=== PATIENT | male | born 1970 | race Caucasian/White ===

== ENCOUNTER 2023-03-08 20:55 | Outpatient (OUT) | payer BC, SELFPAY | END 2023-03-08 20:56 | PROVIDERS: PCP Psychiatry & Neurology Neurology; Visit Provider Psychiatry & Neurology Neurology | DX: G47.33 Obstructive sleep apnea (adult) (pediatric) (principal) | CPT/HCPCS: 95810 ==

== ENCOUNTER 2023-12-06 15:21 | Outpatient (OUT) | payer BC, SELFPAY ==
--- NOTE | 2023-12-06 15:25 | XR_ITS ---
The [address] [address] Patient Name: ELIAZAR FENG MRN: [id number] date: 1970 Sex: M Assigned Patient Location: RAD Current Patient Location: RAD Accession/Order Number: [id number] Exam Date: 12/06/2023 15:32 Report Date: 12/06/2023 20:10 At the request of: ALEIDA JEREZ Procedure: XR chest 2V EXAM: XR chest 2V HISTORY: Influenza A J10.1 COMPARISON: 01/09/2019 TECHNIQUE: Upright PA and lateral chest x-ray FINDINGS: The heart is not enlarged and the vasculature is not distended. No acute infiltrate, effusion or pneumothorax is identified. Again seen is evidence of previous granulomatous disease. The osseous structures are grossly intact. XR/XR chest 2V IMPRESSION: No acute infiltrate or evidence of cardiac decompensation. Mild chronic changes are noted. The overall appearance is essentially unchanged. Electronically authenticated by: ARASELI CAMACHO Date: 12/06/2023 20:10
== END 2023-12-06 15:22 | disposition home or self-care (01) ==
LOC: RAD 15:22
PROVIDERS: PCP Internal Medicine; Visit Provider Physician Assistant
DX: J10.1 Influenza due to other identified influenza virus with other respiratory manifestations (principal); J44.9 Chronic obstructive pulmonary disease, unspecified
CPT/HCPCS: 71046

== ENCOUNTER 2023-12-13 17:23 | Inpatient (IN) | payer BC, SELFPAY ==
[2023-12-13] VITALS (38 sets, daily range): BP systolic 117–167; BP diastolic 80–110; PULSE 89–138; RESP 13–31; TEMP 37.1–39; O2SAT 93–99; BMI 32.3; BMI 32.4
--- NOTE | 2023-12-13 18:27 | ECG_ITS ---
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 Repeat ECG is requested 9150 abnormal ECG Electronically Signed On 12-14-2023 6:42:00 EDT by LUKE AGUILAR
[2023-12-13 18:45] LABS: Hematocrit 47.8 % (42.0-54.0); Mean Corpuscular HGB Conc 33.5 g/dL (29.9-35.2); Mean Corpuscular Hemoglobin 30.3 pg (25.9-34.0); Mean Corpuscular Volume 90.5 fL (80.0-94.0); Mean Platelet Volume 9.1 fL (9.5-13.5); Platelet Count 647 10^3/uL (150-450); Red Blood Count 5.28 10^6/uL (4.70-6.10); Red Cell Distribution Width 14.4 % (11.0-15.0); White Blood Count 29.4 10^3/uL (4.0-11.0)
[2023-12-13 18:57] LABS: Alanine Aminotransferase 34 U/L (16-63); Albumin Level 3.6 g/dL (3.4-5.0); Alkaline Phosphatase 119 U/L (46-116); Anion Gap 12.4; Aspartate Amino Transferase 20 U/L (15-37); BUN Creatinine Ratio 17.6; Calcium 8.7 mg/dL (8.5-10.1); Carbon Dioxide 25.6 mmol/L (21.0-32.0); Chloride 100 mmol/L (98-107); Estimated GFR (African America >60 (>=60); Estimated GFR (Non-African Ame >60 (>=60); Globulin 3.5 g/dL; Glucose 102 mg/dL (74-106); Sodium 134 mmol/L (136-145); Total Protein 7.1 g/dL (6.4-8.2); Troponin I High Sensitivity 69.7 pg/mL (4.0-76.1)
[2023-12-13 19:12] LABS: Band Neutrophils Absolute 1.2 10^3/uL (0.0-0.3)
[2023-12-13 19:13] LABS: Atypical Lymphocytes Abs Man 0.29; Lymphocytes Absolute Manual 0.29 10^3/uL (1.20-3.80); Monocytes Absolute Manual 3.23 10^3/uL (0.30-0.80)
--- NOTE | 2023-12-13 19:15 | XR_ITS ---
The [address] [address] Patient Name: ELIAZAR FENG MRN: [id number] date: 1970 Sex: M Assigned Patient Location: ER Current Patient Location: ER Accession/Order Number: [id number] Exam Date: 12/13/2023 19:49 Report Date: 12/13/2023 20:30 At the request of: COURTNEY MARKER Procedure: XR chest 2V TWO-VIEW CHEST RADIOGRAPH, 12/13/2023 7:49 PM EDT: COMPARISON: Chest, 12/06/2023. CLINICAL HISTORY: fever, cough Findings and impression: 1. On the lateral projection, there is questionable faint opacity suspected in the posterior aspect of the right lower lobe raising possibility for some mild atelectasis or early pneumonia. 2. Normal heart size. 3. No acute osseous abnormality. Electronically authenticated by: Mike PETERS Date: 12/13/2023 20:30
--- NOTE | 2023-12-13 19:17 | ED_ITS ---
HPI - General Adult General Chief complaint: Shortness of Breath/Dyspnea Stated complaint: Medication Refill Time Seen by Provider: 12/13/23 18:53 Source: patient and family Mode of arrival: walk-in Limitations: no limitations History of Present Illness HPI narrative: 53-year-old male, smoker with a history of COPD presents for evaluation stating that he has been taking he has been taking [place] for the past several months for bone spurs in his feet and shoulders. States that he was eating them like candy up to 10-15 a day. He states that he ran out of them approximately 3-1/2 days ago. Since that time he has been having body aches, chills, sweats, diarrhea. He has looked up the symptoms on to go and feel that he is in opiate withdrawal. He is not here for refills on his opiates and wants to stop taking them understanding the risk of addiction and dependence and overdose potential. The patient has also had the flu for the past 2 weeks. He states he tested positive for influenza A. He has had a cough that is productive of sometimes pain and sometimes brown phlegm. He denies any chest pain. He has also had diarrhea recently with abdominal cramping. His legs are cramping. He requests something to help him with withdrawal because he cannot sleep and has had only several hours of sleep for the past several days. Related Data Home Medications ?Medication ?Instructions ?Recorded ?Confirmed albuterol sulfate 90 mcg/actuation 1 puff inhalation Q4H PRN 12/13/23 12/13/23 aerosol inhaler shortness of breath or wheezing budesonide 160 mcg-glycopyr 9 2 inh inhalation BID 12/13/23 12/13/23 mcg-formot 4.8 mcg/actuation HFA inhaler (Breztri Aerosphere) nicotine 21 mg/24 hr daily 1 patch topical Q24H 12/13/23 12/13/23 transdermal patch prednisone 10 mg tablet 10 mg PO TID 12/13/23 12/13/23 tizanidine 4 mg tablet 4 mg PO QPM PRN muscle spasticity 12/13/23 12/13/23 Allergies Allergy/AdvReac Type Severity Reaction Status Date / Time No Known Drug Allergies Allergy Verified 12/13/23 17:53 Review of Systems ROS Status of ROS 10 or more systems reviewed and unremark able except as noted in history and below Exam Narrative Exam Narrative: Nurses note and vital signs reviewed; He is febrile oral temperature one 02.2, tachycardic with a pulse of 129 and blood pressures elevated at 167/110, he is not hypoxic with pulse ox of 95 percent on room air General: Nontoxic but ill-appearing flushed adult male, he has a harsh cough, no marybel respiratory distress Skin: Warm to the touch, flushed and diaphoretic Head: Normocephalic, atraumatic Eye: Normal conjunctiva, no drainage, EOMI. PERRL Ears, Nose, Mouth, and Throat: oral mucosa is moist. Nares patent. Mouth without vesicles. Cardiovascular: Regular Rate and Rhythm, tachycardic in the 120s Respiratory: Moist cough, lungs are diffusely diminished with rhonchi, no rales or wheezing appreciated Back: non-tender, no CVA tenderness bilaterally to percussion. GI: Normal bowel sounds, no tenderness to palpation, no masses appreciated. No rebound, guarding, or rigidity noted. Musculoskeletal: The patient has no evidence of calf tenderness, no pitting edema, symmetrical pulses noted bilaterally Neurological: A&O x4, normal speech Psychiatric: Cooperative, Anxious and tearful at times Constitutional Vital Signs, click to edit/add: Last Vital Signs Temp 99.7 F 12/13/23 21:21 Pulse 94 H 12/13/23 21:50 Resp 26 H 12/13/23 21:50 BP 118/91 12/13/23 20:23 Pulse Ox 94 L 12/13/23 21:50 O2 Del Method Room Air 12/13/23 19:50 Course Vital Signs Vital signs: Vital Signs Temperature 99 F 12/13/23 17:53 Pulse Rate 138 H 12/13/23 17:53 Respiratory Rate 20 12/13/23 17:53 Blood Pressure 167/110 H 12/13/23 17:53 Pulse Oximetry 95 12/13/23 17:53 Oxygen Delivery Method Room Air 12/13/23 17:53 Temperature 99.7 F 12/13/23 21:21 Pulse Rate 94 H 12/13/23 21:50 Respiratory Rate 26 H 12/13/23 21:50 Blood Pressure 118/91 12/13/23 20:23 Pulse Oximetry 94 L 12/13/23 21:50 Oxygen Delivery Method Room Air 12/13/23 19:50 Medical Decision Making [facility] Narrative Medical decision making narrative: 53-year-old male with a history of chronic obstructive pulmonary disease and tobacco use presents for evaluation of diarrhea, nausea, fevers chills, body aches. He was recently diagnosed with influenza A. He has also recently been taking large doses of [place] for chronic pain. The patient's last [place] was 3-1/2 days ago and he has been having diarrhea, chills and sweats. He also has a cough with productive pink and brown phlegm. He was recently on antibiotics steroids and Tessalon Perles. He states that he wants any narcotic medications and in fact wants to get off of the narcotics because he is aware of the abuse potential and overdose potential related to the narcotic use. Upon arrival he was noted to be ill-appearing and markedly tachycardic with a pulse in the 120s to 130s. As a sinus tachycardia at 123 bpm. He has coarse breath sounds and a productive cough. Respiratory panel was ordered which is negative. Routine labs including tylenol level, CBC with differential, CMP and troponin were ordered. H is respiratory panel was negative. Markedly elevated white count at 29.4. He has recently been on steroids twice. Blood cultures and lactic acid are ordered. Blood cultures are pending at this time. Lactic acid is normal. Electrolytes are normal. Chest x-ray shows questionable RLL infiltrate. He was medicated with IV Levaquin, toradol, po clonidine, zofran for the nausea, and IVF for the dehydr ation and body aches. He was given po tylenol for the fever once the tylenol level came back less than 2. CT of the chest is negative for pulmonary embolism but does show right lower lobe infiltrate consistent with pneumonia. He is was discussed with the hospitalist patient accepted for admission Medical Records Medical records narrative: The [address] [address] XRay Report Signed Patient: ELIAZAR FENG MR#: [id number] : 1970 Acct:[id number] Age/Sex: 53 / M ADM Date: 12/13/23 Loc: ER Attending Dr: Ordering Physician: Shena Chairez Date of Service: 12/13/23 Procedure(s): XR chest 2V Accession Number(s): [id number] cc: PHOEBE MARKS ; Shena Chairez~ The [address] [id number] Patient Name: ELIAZAR FENG MRN: [id number] date: 1970 Sex: M Assigned Patient Location: ER Current Patient Location: ER Accession/Order Number: [id number] Exam Date: 12/13/2023 19:49 Report Date: 12/13/2023 20:30 At the request of: SHENA MARKER Procedure: XR chest 2V TWO-VIEW CHEST RADIOGRAPH, 12/13/2023 7:49 PM EDT: COMPARISON: Chest, 12/06/2023. CLINICAL HISTORY: fever, cough Findings and impression: 1. On the lateral projection, there is questionable faint opacity suspected in the posterior aspect of the right lower lobe raising possibility for some mild atelectasis or early pneumonia. 2. Normal heart size. 3. [place] [address] CT Scan Report Signed Patient: ELIAZAR FENG MR#: [id number] : 1970 Acct:[id number] Age/Sex: 53 / M ADM Date: 12/13/23 Loc: ER Attending Dr: Ordering Physician: Shena Chairez Date of Service: 12/13/23 Procedure(s): CT angio chest Accession Number(s): [id number] cc: PHOEBE MARKS ~ The [address] [address] Patient Name: ELIAZAR FENG MRN: [id number] date: 1970 Sex: M Assigned Patient Location: ER Current Patient Location: ER Accession/Order Number: [id number] Exam Date: 12/13/2023 21:00 Report Date: 12/13/2023 22:01 At the request of: SHENA MARKER Procedure: CT angio chest EXAM: CT angio chest , 12/13/2023 HISTORY: R/O PE fever and cough COMPARISON: Chest x-ray from 12/13/2023 TECHNIQUE: CT scan of the chest using intravenous 98 mL of Omnipaque [address] angiogram pulmonary artery protocol. Coronal and sagittal reconstructions were performed including 3-D. Dose reduction techniques were achieved by using automated exposure control and/or adjustment of mA and/or kV according to patient size and/or use of iterative reconstruction technique. FINDINGS: The main pulmonary artery, right and left pulmonary arteries, lobar and segmental pulmonary arteries are patent and show no obvious filling defect to suggest pulmonary thromboembolism. Study is limited for evaluation of the subsegmental pulmonary arteries due to suboptimal opacification. The lung windows demonstrate patchy infiltrates in the right lower lobe consistent with pneumonia. There is bilateral mild bronchial wall thickening, predominantly in the lower lobes. Motion artifacts are noted in the lung bases as well. Groundglass densities in the right middle lobe and left lung base. Calcified nodule in the right lung with calcified right hilar and mediastinal lymph nodes, consistent with old granulomas. The central tracheobronchial airways are patent. The mediastinal windows demonstrate patent thoracic aorta and great vessels. Ectatic ascending thoracic aorta measuring 3.8 cm. No pleural or pericardial effusion. Thyroid gland demonstrates no focal lesion or enlargement. Esophagus is nondilated. Borderline prominent right hilar lymph nodes, likely reactive. The bone windows demonstrate minimal degenerative changes thoracic spine. Limited scans through the upper abdomen show no acute findings. CT/CT angio chest IMPRESSION: 1. No evidence of pulmonary thromboembolism. 2. Right lower lobe infiltrates. Patchy groundglass densities in the right middle lobe and left lower lobe, likely infection or inflammation. 3. Ectatic ascending thoracic aorta measuring 3.8 cm. Lab Data Labs: Lab Results 12/13/23 12/13/23 Range/Units 18:18 19:41 WBC 29.4 H (4.0-11.0) 10^3/uL RBC 5.28 (4.70-6.10) 10^6/uL Hgb 16.0 (14.0-18.0) g/dL Hct 47.8 (42.0-54.0) % MCV 90.5 (80.0-94.0) fL MCH 30.3 (25.9-34.0) pg MCHC 33.5 (29.9-35.2) g/dL RDW 14.4 (11.0-15.0) % Plt Count 647 H (150-450) 10^3/uL MPV 9.1 L (9.5-13.5) fL Seg Neuts % (Manual) 83.0 Band Neutrophils % 4.0 (0-5) % Lymphocytes % (Manual) 1.0 L (20.5-60.0) % Atypical Lymphs % (Man) 1.0 % Monocytes % (Manual) 11.0 (1.7-12.0) % Eosinophils % (Manual) 0.0 L (0.9-7.0) % Basophils % (Manual) 0.0 L (0.2-2.0) % Neutrophils # (Manual) 24.40 H (1.4-6.5) 10^3/uL Band Neutrophils # 1.2 H (0.0-0.3) 10^3/uL Lymphocytes # (Manual) 0.29 L (1.20-3.80) 10^3/uL Abs Atypical Lymphs Man 0.29 Monocytes # (Manual) 3.23 H (0.30-0.80) 10^3/uL Eosinophils # (Manual) 0.00 (0.00-0.70) 10^3/uL Basophils # (Manual) 0.00 (0.00-0.10) 10^3/uL Sodium 134 L (136-145) mmol/L Potassium 4.0 (3.5-5.1) mmol/L Chloride 100 (98-107) mmol/L Carbon Dioxide 25.6 (21.0-32.0) mmol/L Anion Gap 12.4 BUN 16.0 (7.0-18.0) mg/dL Creatinine 0.91 (0.70-1.30) mg/dL Est GFR ( Amer) >60 (>=60) Est GFR (Non-Af Amer) >60 (>=60) BUN/Creatinine Ratio 17.6 Glucose 102 (74-106) mg/dL Lactate 1.5 (0.4-2.0) mmol/L Calcium 8.7 (8.5-10.1) mg/dL Total Bilirubin 2.0 H (0.2-1.0) mg/dL AST 20 (15-37) U/L ALT 34 (16-63) U/L Alkaline Phosphatase 119 H (46-116) U/L Troponin I High Sens 69.7 (4.0-76.1) pg/mL Total Protein 7.1 (6.4-8.2) g/dL Albumin 3.6 (3.4-5.0) g/dL Globulin 3.5 g/dL Albumin/Globulin Ratio 1.0 Acetaminophen <2.0 L (10.0-30.0) ug/mL Adenovirus (PCR) Not detected (NOT DETECTE) C. pneumoniae DNA (PCR) Not detected (NOT DETECTE) Coronavirus Type OC43 Not detected (NOT DETECTE) Coronavirus Type HKU1 Not detected (NOT DETECTE) Coronavirus Type 229E Not detected (NOT DETECTE) Coronavirus Type NL63 Not detected (NOT DETECTE) Human Metapneumovir PCR Not detected (NOT DETECTE) M. pneumoniae (PCR) Not detected (NOT DETECTE) Parainfluenza PCR Not detected (NOT DETECTE) Parainfluenza 2 (PCR) Not detected (NOT DETECTE) Parainfluenza 3 (PCR) Not detected (NOT DETECTE) Parainfluenza 4 (PCR) Not detected (NOT DETECTE) RSV (RT-PCR) Not detected (NOT DETECTE) Entero/Rhino (PCR) Not detected (NOT DETECTE) SARS-CoV-2 (PCR) Not detected (NOT DETECTE) Bordetella pertussis (PCR) Not detected (NOT DETECTE) B parapertussis DNA PCR Not detected (NOT DETECTE) Influenza Type A (PCR) Not detected (NOT DETECTE) Influenza Type B (PCR) Not detected (NOT DETECTE) Discharge Plan Discharge Chief Complaint: Shortness of Breath/Dyspnea Clinical Impression: Opiate withdrawal, RLL pneumonia Patient Disposition: Admitted As Inpatient Time of Disposition Decision: 22:15 Condition: Fair Prescriptions / Home Meds: No Action albuterol sulfate 90 mcg/actuation HFA aerosol inhaler 1 puff INHALATION Q4H PRN (Reason: shortness of breath or wheezing) Breztri Aerosphere 160-9-4.8 mcg/actuation HFA aerosol inhaler 2 inh INHALATION BID nicotine 21 mg/24 hr patch 24 hour 1 patch topical Q24H prednisone 10 mg tablet 10 mg PO TID tizanidine 4 mg tablet 4 mg PO QPM PRN (Reason: muscle spasticity) Print Language: Iraqi Referrals: PHOEBE MARKS [Primary Care Provider] - 1 week
[2023-12-13] MEDS: CLONIDINE HCL 0.1 MG TABLET 0.100000000000000006 MG PO (19:33)
[2023-12-13] MEDS: KETOROLAC TROMETHAMINE 30 MG/ML VIAL IVP (19:33)
[2023-12-13] MEDS: 0.9 % SODIUM CHLORIDE 1,000 ML 1000 ML IV ×2 (19:34→21:27)
[2023-12-13] MEDS: ONDANSETRON PF 4 MG/2 ML VIAL IV (19:43)
[2023-12-13 19:44] LABS: Lactate/Lactic Acid 1.5 mmol/L (0.4-2.0)
[2023-12-13 19:46] LABS: Adenovirus NOT DETECTED (NOT DETECTE); Bordetella parapertussis NOT DETECTED (NOT DETECTE); Coronavirus 229E NOT DETECTED (NOT DETECTE); Coronavirus HKU1 NOT DETECTED (NOT DETECTE); Coronavirus NL63 NOT DETECTED (NOT DETECTE); Coronavirus OC43 NOT DETECTED (NOT DETECTE); Human Metapneumovirus NOT DETECTED (NOT DETECTE); Human Rhinovirus/Enterovirus NOT DETECTED (NOT DETECTE); Influenza A NOT DETECTED (NOT DETECTE); Influenza B NOT DETECTED (NOT DETECTE); Mycoplasma pneumoniae NOT DETECTED (NOT DETECTE); Parainfluenza Virus 1 NOT DETECTED (NOT DETECTE); Parainfluenza Virus 2 NOT DETECTED (NOT DETECTE); Parainfluenza Virus 3 NOT DETECTED (NOT DETECTE); Parainfluenza Virus 4 NOT DETECTED (NOT DETECTE); Respiratory Syncytial Virus NOT DETECTED (NOT DETECTE); SARS-CoV-2 NOT DETECTED (NOT DETECTE)
[2023-12-13 19:52] LABS: Acetaminophen <2.0 ug/mL (10.0-30.0)
[2023-12-13] MEDS: ACETAMINOPHEN 325 MG TABLET 650 MG PO (20:20)
--- NOTE | 2023-12-13 20:46 | CT_ITS ---
[address] [address] Patient Name: ELIAZAR FENG MRN: [id number] date: 1970 Sex: M Assigned Patient Location: ER Current Patient Location: Accession/Order Number: [id number] Exam Date: 12/13/2023 21:00 Report Date: 12/13/2023 22:01 At the request of: COURTNEY MARKER Procedure: CT angio chest EXAM: CT angio chest , 12/13/2023 HISTORY: R/O PE fever and cough COMPARISON: Chest x-ray from 12/13/2023 TECHNIQUE: CT scan of the chest using intravenous 98 mL of Omnipaque [address] angiogram pulmonary artery protocol. Coronal and sagittal reconstructions were performed including 3-D. Dose reduction techniques were achieved by using automated exposure control and/or adjustment of mA and/or kV according to patient size and/or use of iterative reconstruction technique. FINDINGS: The main pulmonary artery, right and left pulmonary arteries, lobar and segmental pulmonary arteries are patent and show no obvious filling defect to suggest pulmonary thromboembolism. Study is limited for evaluation of the subsegmental pulmonary arteries due to suboptimal opacification. The lung windows demonstrate patchy infiltrates in the right lower lobe consistent with pneumonia. There is bilateral mild bronchial wall thickening, predominantly in the lower lobes. Motion artifacts are noted in the lung bases as well. Groundglass densities in the right middle lobe and left lung base. Calcified nodule in the right lung with calcified right hilar and mediastinal lymph nodes, consistent with old granulomas. The central tracheobronchial airways are patent. The mediastinal windows demonstrate patent thoracic aorta and great vessels. Ectatic ascending thoracic aorta measuring 3.8 cm. No pleural or pericardial effusion. Thyroid gland demonstrates no focal lesion or enlargement. Esophagus is nondilated. Borderline prominent right hilar lymph nodes, likely reactive. The bone windows demonstrate minimal degenerative changes thoracic spine. Limited scans through the upper abdomen show no acute findings. CT/CT angio chest IMPRESSION: 1. No evidence of pulmonary thromboembolism. 2. Right lower lobe infiltrates. Patchy groundglass densities in the right middle lobe and left lower lobe, likely infection or inflammation. 3. Ectatic ascending thoracic aorta measuring 3.8 cm. Electronically authenticated by: ISELA NIÑO Date: 12/13/2023 22:01
[2023-12-13] MEDS: LEVOFLOXACIN IN DEXTROSE 5 % 750 MG/150 ML IV.SOLN 100 MG IV (21:13)
--- NOTE | 2023-12-13 21:21 | PC.NURSE ---
radiation monitor continues
[2023-12-13] MEDS: IPRATROPIUM/ALBUTEROL SULFATE 3 ML AMPUL.NEB IH (21:37)
--- NOTE | 2023-12-13 22:58 | PC.NURSE ---
Patient has history of seizure 1x abut a year ago. None since
[2023-12-13 23:46] LABS: PROCALCITONIN 0.13 ng/mL (0.00-0.50)
[2023-12-13] MEDS: 0.9 % SODIUM CHLORIDE 1,000 ML 125 ML IV (23:56)
[2023-12-14] VITALS (19 sets, daily range): BP systolic 117–158; BP diastolic 77–97; PULSE 72–96; RESP 20; TEMP 36.8–37.2; O2SAT 92–96; BMI 32.4
--- NOTE | 2023-12-14 04:33 | PC.NURSE ---
Patient reports being sweaty. Temp 98.7. denies hallucinations or anxiety.
[2023-12-14 04:42] LABS: Glucometer 103 mg/dL (74-106)
--- NOTE | 2023-12-14 04:42 | PC.NURSE ---
Blood Sugar checked. 107 results
[2023-12-14 05:45] LABS: Basophils Percent Auto 0.2 % (0.2-2.0); Eosinophils Absolute Auto 0.1 10^3/uL (0.0-0.7); Eosinophils Percent Auto 0.4 % (0.9-7.0); Hematocrit 41.4 % (42.0-54.0); Hemoglobin 13.4 g/dL (14.0-18.0); Immature Granulocytes Abs Auto 0.15 10^3/uL (0.00-0.03); Immature Granulocytes Pct Auto 0.6 % (0.0-0.5); Lymphocytes Percent Auto 4.1 % (20.5-60.0); Mean Corpuscular HGB Conc 32.4 g/dL (29.9-35.2); Mean Corpuscular Volume 92.8 fL (80.0-94.0); Mean Platelet Volume 9.2 fL (9.5-13.5); Monocytes Absolute Auto 1.8 10^3/uL (0.3-0.8); Monocytes Percent Auto 7.1 % (1.7-12.0); Neutrophils Absolute Auto 22.4 10^3/uL (1.4-6.5); Neutrophils Percent Auto 87.6 % (43.0-75.0); Platelet Count 488 10^3/uL (150-450); Red Blood Count 4.46 10^6/uL (4.70-6.10); Red Cell Distribution Width 14.4 % (11.0-15.0); White Blood Count 25.5 10^3/uL (4.0-11.0)
[2023-12-14 06:10] LABS: Alanine Aminotransferase 32 U/L (16-63); Albumin Globulin Ratio 0.8; Albumin Level 2.5 g/dL (3.4-5.0); Alkaline Phosphatase 88 U/L (46-116); Anion Gap 10.4; Aspartate Amino Transferase 19 U/L (15-37); BUN Creatinine Ratio 22.7; Bilirubin Total 1.5 mg/dL (0.2-1.0); Calcium 7.8 mg/dL (8.5-10.1); Carbon Dioxide 25.7 mmol/L (21.0-32.0); Chloride 106 mmol/L (98-107); Estimated GFR (African America >60 (>=60); Estimated GFR (Non-African Ame >60 (>=60); Globulin 3.1 g/dL; Glucose 98 mg/dL (74-106); Potassium 4.1 mmol/L (3.5-5.1); Sodium 138 mmol/L (136-145); Total Protein 5.6 g/dL (6.4-8.2)
[2023-12-14] MEDS: 0.9 % SODIUM CHLORIDE 1,000 ML 125 ML IV (07:17)
--- NOTE | 2023-12-14 08:41 | PM.HP ---
HPI H&P: HPI History of Present Illness Chief complaint: Medication Refill Oplate withdrawal RLL Pneumonia Narrative: patient is a 53-year-old male with past medical history of multiple bone spurs of which she was seeing a orthopedic and on chronic opioid therapy, smoker, with history of chronic obstructive pulmonary disease. patient reports that two weeks ago he developed influenza A and was getting fevers and body aches and overall fatigue from that. He intermittently tried to go back to work and was just feeling terrible. He presented to the Emergency Room last night with fevers, chills, shortness of breath. He reports that he has underlying chronic obstructive pulmonary disease but does not see a lung doctor. He follows with Dr. Morales as his primary care physician and saw him a few days ago with his symptoms and got a chest x-ray which was negative for pneumonia. We presented to the Emergency Room last night x-ray and CT of the lungs was obtained which showed a right lower lobe right middle lobe and left lower lobe infiltrates consistent with multifocal pneumonia. He was admitted to the hospital service for further plan of care. He was started on Levaquin, IV fluids. His white blood cell count was found to be elevated at twenty-five, troponin was within normal limits. As a side note patient also says that he has been escalating his oxycodone prescription and taking around 10-12 a day for pain relief. He has ran out approximately seventy-two hours ago. He has never went without his medication before but says he does not want or wish to be on any opioid medications now. He said many years ago he was controlled on tramadol which then escalated to oxycodone that he was prescribed and now he reports that he does not want to be on anything controlled. He is been experiencing some abdominal cramping and some sweating also from withdrawal opioids. He denies any other recreational drugs or history of. He is wondering what else we could provide him with for withdrawal symptoms. Opioid HPI Opioid Management Most Recent Opioid Data: Last Pain Scale 6 12/14/23 09:28 Last Pain Assessment 12/14/23 11:00 Last MAR Pain Assessment 12/14/23 11:01 Last ORT Total Score 0 12/13/23 22:47 Last ORT Risk Category Low Risk 12/13/23 22:47 Last COWS Score 3 12/14/23 07:23 Review of Systems ROS Narrative ROS: a complete review of systems were reviewed with patient and are positive as below or listed in History of Chief Complaint. General: fever, chills, night sweats Head: no headache, trauma, visual changes, nausea or vomiting Skin: no reported rashes, itching or sores Eyes: no blurriness of vision Ears: no reported hearing loss, vertigo, earache, or tinnitus Throat: no sore throat, hoarseness, swelling of neck, or tongue pain Heart: no chest pain Lungs: shortness of breath and cough GI: no diarrhea or vomiting/nausea Urinary: no urinary urgency, frequency or pain Neuro: no numbness or tingling HEM: no bleeding issues or bruising ENDO: no thyroid problems Psych: no anxiety or depression PFSH PFSH Medical History (Updated 12/14/23 @ 12:43 by Ysabel Salazar DO) COPD (chronic obstructive pulmonary disease) with chronic bronchitis ?J44.89 - Other specified chronic obstructive pulmonary disease (ICD-10) AVM (arteriovenous malformation) brain ?Q28.2 - Arteriovenous malformation of cerebral vessels (ICD-10) AC (acromioclavicular) joint bone spurs ?M75.80 - Other shoulder lesions, unspecified shoulder (ICD-10) Hypertension ?I10 - Essential (primary) hypertension (ICD-10) Surgical History H/O shoulder surgery ?Z98.890 - Other specified postprocedural states (ICD-10) History of hernia surgery ?Z98.890 - Other specified postprocedural states (ICD-10) ?Z87.19 - Personal history of other diseases of the digestive system (ICD-10) Family History Other Family history not known due to adoption Social History Within the past year, how often did you have a drink containing alcohol: monthly or less Smoking status: Current every day smoker Non-prescribed substance use: denies use Previous occupational history: maintance Known occupational exposures/hazards: Yes Highest level of school completed/degree received: high school graduate Are you now , , , , never or living with a partner: In a typical week, how many times do you talk on the telephone with family, friends, or neighbors: never How often do you get together with friends or relatives: never How often do you attend denominational or restorationism services: never Do you belong to any clubs or organizations such as denominational groups unions, fraternal or athletic groups, or school groups: yes Total score: 2 Score interpretation: A score of greater than or equal to 2 indicates the lowest level of social isolation. Little interest or pleasure in doing things: not at all Feeling down, depressed, or hopeless: not at all Feel stressed/tense/nervous/anxious/difficulty sleeping: not at all Gender Identity: male Meds Home Medications and Allergies Home Medications ?Medication ?Instructions ?Recorded ?Confirmed ?Type albuterol sulfate 90 mcg/actuation 1 puff inhalation Q4H PRN 12/13/23 12/13/23 History aerosol inhaler shortness of breath or wheezing benzonatate 200 mg capsule 200 mg PO BID PRN cough 12/13/23 12/14/23 History budesonide 160 mcg-glycopyr 9 2 inh inhalation BID 12/13/23 12/14/23 History mcg-formot 4.8 mcg/actuation HFA inhaler (Breztri Aerosphere) codeine 10 mg-guaifenesin 100 mg/5 10 ml PO Q6H PRN cough 12/13/23 12/14/23 History mL oral liquid hydrocodone 5 mg-acetaminophen 325 1 tab PO Q6H PRN moderate to 12/13/23 12/14/23 History mg tablet severe pain nicotine 21 mg/24 hr daily 1 patch topical Q24H 12/13/23 12/13/23 History transdermal patch tizanidine 4 mg tablet 4 mg PO QPM PRN muscle spasticity 12/13/23 12/13/23 History Allergies Allergy/AdvReac Type Severity Reaction Status Date / Time No Known Drug Allergies Allergy Verified 12/13/23 17:53 Exam Narrative Exam Narrative: General: Patient is alert, and oriented to person, place and time with normal affect, proper hygiene Skin: no visible rashes, or ulcers Head: atraumatic, acephalic Eyes: PERRLA, no nystagmus present, conjunctiva clear, no scleral icterus Ears: normal gross auditory acuity Heart: Normal rate and rhythm, no murmurs/rubs/gallops Lungs: audible wheezes, crackles and diminished breath sounds bilaterally Abdomen: Normal audible bowel sounds, no distension, No palpable masses, no organomegaly, no rebound/guarding/ or rigidity Musculoskeletal: no swelling bilateral lower extremities Neuro: CN II-X grossly intact Constitutional Vital Signs, click to edit/add: Last Vital Signs Temp 98.9 F 12/14/23 07:21 Pulse 82 12/14/23 08:02 Resp 20 12/14/23 07:23 BP 154/91 H 12/14/23 07:21 Pulse Ox 94 L 12/14/23 07:21 O2 Del Method Room Air 12/14/23 07:21 Results Labs Labs: Short CBC 12/13/23 12/14/23 Range/Units 18:18 05:26 WBC 29.4 H 25.5 H (4.0-11.0) 10^3/uL Hgb 16.0 13.4 L (14.0-18.0) g/dL Hct 47.8 41.4 L (42.0-54.0) % Plt Count 647 H 488 H (150-450) 10^3/uL BMP 12/13/23 12/14/23 18:18 05:26 Sodium 134 L 138 Potassium 4.0 4.1 Chloride 100 106 Carbon Dioxide 25.6 25.7 BUN 16.0 20.0 H Creatinine 0.91 0.88 Glucose 102 98 Calcium 8.7 7.8 L Liver Function 12/13/23 12/14/23 Range/Units 18:18 05:26 Total Bilirubin 2.0 H 1.5 H (0.2-1.0) mg/dL AST 20 19 (15-37) U/L ALT 34 32 (16-63) U/L Alkaline Phosphatase 119 H 88 (46-116) U/L Albumin 3.6 2.5 L (3.4-5.0) g/dL Assessment and Plan Assessment and Plan (1) RLL pneumonia: Assessment and Plan: viral panel was negative, chest x-ray and CT consistent with a right lower lobe right middle lobe and the left lower lobe pneumonia. Continue Levaquin 750 mg daily. Schedule duo nebulizers every 6 hours, Pulmicort. And oxygen therapy if needed. OPEP therapy. Leukocytosis 25, normal lactate Qualifiers: Pneumonia type: due to unspecified organism Qualified Code(s): J18.9 - Pneumonia, unspecified organism (2) Opiate withdrawal: Assessment and Plan: addition of clonidine and add PRN Vistaril today. Complex with also sick with pneumonia. Case management for resources once d/c. (3) Hypertension: Assessment and Plan: continue to monitor, no home meds for this Qualifiers: Hypertension type: primary hypertension Qualified Code(s): I10 - Essential (primary) hypertension (4) COPD (chronic obstructive pulmonary disease) with chronic bronchitis: Assessment and Plan: no acute exacerbation, I think the addition of IV steroids would make his opiate withdrawal worse. Plan Patient is full code Lovenox for dvt prophylaxis Patient is inpatient status and is expected to cross 2 midnights for hospital medically necessary care.
[2023-12-14] MEDS: CLONIDINE HCL 0.1 MG TABLET 0.100000000000000006 MG PO ×2 (09:23→21:00)
[2023-12-14] MEDS: NICOTINE 21 MG PATCH.TD24 TD (09:23)
[2023-12-14] MEDS: HYDROCHLOROTHIAZIDE 25 MG TABLET PO (09:23)
[2023-12-14] MEDS: LISINOPRIL 20 MG TABLET PO (09:24)
[2023-12-14] MEDS: ACETAMINOPHEN 325 MG TABLET 650 MG PO ×3 (09:28→23:03)
--- NOTE | 2023-12-14 12:00 | CM.NOTE ---
Rounded with Dr. Danii Salazar. No discharge today but anticipate discharge plan of home with no needs.
--- NOTE | 2023-12-14 14:13 | SWNOTE1 ---
SW met with pt in regards to his opiate withdrawal. Pt is at home with his . They have been cleaning up there apartment rental as they have people moving in. Pt has bone spurs up in his shoulder area. He had been on toradol for about 10 years and was taking 10 or 15 of them per day. He had surgery on bone spurs. He was then on [place] and was taking about 10-15 of those per day. He is still working and had to move heavy machinery. A few days ago he ran out of his medication. They were working on the apartment and he was just laying there sweating and coughing stuff up and just felt terrible. He was at Urgent Care in [place] 2 weeks ago and had influenza A. Him and his thought it was still side effects from flu A. He voiced she started to google stuff and felt like he was in withdrawal. He voiced he had no idea and was shocked. He told to take him to hospital. SW and pt spoke about addiction and how easily it happens. Pt voiced several times he will not get another prescription and he will just deal with the pain. He voiced he could have another surgery, but does not have time to take off work. Pt voiced several times he had no idea that he was going thru withdrawal and that he was never going to take that stuff again. At this time pt does not want any resources in regards to drug rehab/counseling. Pt voices no needs at discharge.
[2023-12-14] MEDS: ENOXAPARIN SODIUM 40 MG/0.4 ML SYRINGE SUBQ (14:51)
[2023-12-14] MEDS: IPRATROPIUM/ALBUTEROL SULFATE 3 ML AMPUL.NEB IH ×2 (16:26→23:27)
[2023-12-14 17:58] LABS: Cannabinoid Screen Urine POSITIVE (NEGATIVE)
[2023-12-14 17:59] LABS: Amphetamine Screen Urine NEGATIVE (NEGATIVE); Barbiturates Screen Urine NEGATIVE (NEGATIVE); Benzodiazepines Screen Urine NEGATIVE (NEGATIVE); Buprenorphine Screen Urine NEGATIVE (NEGATIVE); Cocaine Screen Urine NEGATIVE (NEGATIVE); Methadone Screen Urine NEGATIVE (NEGATIVE); Methamphetamines Screen Urine NEGATIVE (NEGATIVE); Opiate Screen Urine POSITIVE (NEGATIVE); Oxycodone Screen Urine POSITIVE (NEGATIVE); Phencyclidine Screen Urine NEGATIVE (NEGATIVE); Tricyclic Antidepressant Urine NEGATIVE (NEGATIVE)
[2023-12-14] MEDS: LEVOFLOXACIN IN DEXTROSE 5 % 750 MG/150 ML IV.SOLN 100 MG IV (20:59)
[2023-12-15] VITALS (7 sets, daily range): BP systolic 151–161; BP diastolic 89–105; PULSE 72–88; TEMP 36.7–37; O2SAT 95
[2023-12-15] MEDS: IPRATROPIUM/ALBUTEROL SULFATE 3 ML AMPUL.NEB IH (04:31)
[2023-12-15 05:07] LABS: Basophils Absolute Auto 0.1 10^3/uL (0.0-0.1); Basophils Percent Auto 0.4 % (0.2-2.0); Eosinophils Absolute Auto 0.2 10^3/uL (0.0-0.7); Eosinophils Percent Auto 1.8 % (0.9-7.0); Hematocrit 39.4 % (42.0-54.0); Hemoglobin 12.9 g/dL (14.0-18.0); Immature Granulocytes Abs Auto 0.04 10^3/uL (0.00-0.03); Immature Granulocytes Pct Auto 0.3 % (0.0-0.5); Lymphocytes Absolute Auto 1.2 10^3/uL (1.2-3.8); Lymphocytes Percent Auto 9.8 % (20.5-60.0); Mean Corpuscular HGB Conc 32.7 g/dL (29.9-35.2); Mean Corpuscular Hemoglobin 30.2 pg (25.9-34.0); Mean Corpuscular Volume 92.3 fL (80.0-94.0); Mean Platelet Volume 9.7 fL (9.5-13.5); Monocytes Absolute Auto 1.5 10^3/uL (0.3-0.8); Monocytes Percent Auto 11.4 % (1.7-12.0); Neutrophils Absolute Auto 9.7 10^3/uL (1.4-6.5); Neutrophils Percent Auto 76.3 % (43.0-75.0); Platelet Count 475 10^3/uL (150-450); Red Blood Count 4.27 10^6/uL (4.70-6.10); Red Cell Distribution Width 14.6 % (11.0-15.0); White Blood Count 12.7 10^3/uL (4.0-11.0)
[2023-12-15 05:28] LABS: Alanine Aminotransferase 41 U/L (16-63); Albumin Globulin Ratio 0.7; Albumin Level 2.4 g/dL (3.4-5.0); Alkaline Phosphatase 88 U/L (46-116); Anion Gap 11.9; Aspartate Amino Transferase 21 U/L (15-37); BUN Creatinine Ratio 17.6; Bilirubin Total 0.9 mg/dL (0.2-1.0); Carbon Dioxide 26.2 mmol/L (21.0-32.0); Chloride 106 mmol/L (98-107); Estimated GFR (African America >60 (>=60); Estimated GFR (Non-African Ame >60 (>=60); Globulin 3.4 g/dL; Glucose 98 mg/dL (74-106); Potassium 4.1 mmol/L (3.5-5.1); Sodium 140 mmol/L (136-145); Total Protein 5.8 g/dL (6.4-8.2)
--- NOTE | 2023-12-15 08:14 | PM.DS1 ---
DS: Providers Provider Date of admission: 12/13/23 22:40 Primary care physician: PHOEBE GONZALEZ Admitting clinician: Ysabel Salazar Consults: 12/13/23 Consult to Dietitian Routine Reason For Exam: 14 pound weight loss Reason for consultation: 14 pound weight loss in 2 weeks Discharging clinician: Ysabel Salazar DS: Diagnosis Discharge Diagnosis (1) RLL pneumonia: Qualifiers: Pneumonia type: due to unspecified organism Qualified Code(s): J18.9 - Pneumonia, unspecified organism (2) Opiate withdrawal: (3) Hypertension: Qualifiers: Hypertension type: primary hypertension Qualified Code(s): I10 - Essential (primary) hypertension (4) COPD (chronic obstructive pulmonary disease) with chronic bronchitis: DS: Summary Hospital Course Hospital Course: patient is a 53-year-old male with past medical history of multiple bone spurs of which she was seeing a orthopedic and on chronic opioid therapy, smoker, with history of chronic obstructive pulmonary disease. patient reports that two weeks ago he developed influenza A and was getting fevers and body aches and overall fatigue from that. He intermittently tried to go back to work and was just feeling terrible. He presented to the Emergency Room with fevers, chills, shortness of breath. He reports that he has underlying chronic obstructive pulmonary disease but does not see a lung doctor. He follows with Dr. Gonzalez as his primary care physician and saw him a few days ago with his symptoms and got a chest x-ray which was negative for pneumonia. X-ray and CT of the lungs was obtained which showed a right lower lobe right middle lobe and left lower lobe infiltrates consistent with multifocal pneumonia. He was admitted to the hospital service for further plan of care. He was started on Levaquin, IV fluids. His white blood cell count was found to be elevated at twenty-five at discharge was 12, troponin was within normal limits. As a side note patient also says that he has been escalating his oxycodone prescription and taking around 10-12 a day for pain relief. He has ran out approximately 4 days ago. He has never went without his medication before but says he does not want or wish to be on any opioid medications now. He was provided with Vistaril and clonidine which very much improved his symptoms of withdrawal. I will provide him with 7 days of both medications. His symptoms improved on Levaquin and will continue on 750mg daily x 5 more days. Use albuterol inhaler around the clock for 2 days and then just as needed. Given work note from 12/12-12/20/23 until he can be cleared by PCP. Please return to ED with any worsening symptoms. He is not requiring any oxygen at the time of discharge and symptom have improved faster than anticipated. Status at Discharge Functional status at discharge: independent ambulation Overall status at discharge: patient is progressing back to baseline Time Spent with Patient Time attestation: Total time spent providing and/or coordinating discharge services: Time spent: greater than 30 minutes Exam Narrative Exam Narrative: General: Patient is alert, and oriented to person, place and time with normal affect, proper hygiene Skin: no visible rashes, or ulcers Head: atraumatic, acephalic Eyes: PERRLA, no nystagmus present, conjunctiva clear, no scleral icterus Ears: normal gross auditory acuity Heart: Normal rate and rhythm, no murmurs/rubs/gallops Lungs: no audible wheezes, crackles and normal breath sounds all lung zelaya Abdomen: Normal audible bowel sounds, no distension, No palpable masses, no organomegaly, no rebound/guarding/ or rigidity Musculoskeletal: no swelling bilateral lower extremities Neuro: CN II-X grossly intact Constitutional Vital Signs, click to edit/add: Last Vital Signs Temp 98.0 F 12/15/23 04:00 Pulse 88 12/15/23 07:36 Resp 18 12/15/23 04:31 BP 151/89 H 12/15/23 04:00 Pulse Ox 95 12/15/23 04:31 O2 Del Method Room Air 12/15/23 04:31 DS: Data Data Completed and Pending Labs on day of discharge: Labs from last 24 hours 12/15/23 12/13/23 04:13 22:45 WBC 12.7 H RBC 4.27 L Hgb 12.9 L Hct 39.4 L MCV 92.3 MCH 30.2 MCHC 32.7 RDW 14.6 Plt Count 475 H MPV 9.7 Neut % (Auto) 76.3 H Lymph % (Auto) 9.8 L [place] % (Auto) 11.4 Eos % (Auto) 1.8 Baso % (Auto) 0.4 Neut # (Auto) 9.7 H Lymph # (Auto) 1.2 [place] # (Auto) 1.5 H Eos # (Auto) 0.2 Baso # (Auto) 0.1 Abs Immat Gran (auto) 0.04 H Imm/Tot Granulo (auto) 0.3 Sodium 140 Potassium 4.1 Chloride 106 Carbon Dioxide 26.2 Anion Gap 11.9 BUN 15.0 Creatinine 0.85 Est GFR ( Amer) >60 Est GFR (Non-Af Amer) >60 BUN/Creatinine Ratio 17.6 Glucose 98 Calcium 8.0 L Total Bilirubin 0.9 AST 21 ALT 41 Alkaline Phosphatase 88 Total Protein 5.8 L Albumin 2.4 L Globulin 3.4 Albumin/Globulin Ratio 0.7 Urine Opiates Screen Positive A Ur Buprenorphine Scrn Negative Ur Oxycodone Screen Positive A Urine Methadone Screen Negative Ur Barbiturates Screen Negative U Tricyclic Antidepress Negative Ur Phencyclidine Scrn Negative Ur Amphetamines Screen Negative U Methamphetamines Scrn Negative U Benzodiazepines Scrn Negative Urine Cocaine Screen Negative U Cannabinoids Screen Positive A Discharge Plan Discharge Disposition: Home, Self-Care Condition: Fair Plan of Treatment: please use albuterol inhaler every 6 hours for the next 2 days while awake, then just use as needed. Discharge Medications: New clonidine HCl 0.1 mg Tablet 0.1 mg PO BID 7 Days Qty: 14 0RF hydroxyzine pamoate 25 mg Capsule 25 mg PO TID PRN (Reason: Agitation) 7 Days Qty: 21 0RF levofloxacin 750 mg tablet 750 mg PO DAILY 5 Days Qty: 5 0RF Continued albuterol sulfate 90 mcg/actuation HFA aerosol inhaler 1 puff INHALATION Q4H PRN (Reason: shortness of breath or wheezing) Tea Aerosphere 160-9-4.8 mcg/actuation HFA aerosol inhaler 2 inh INHALATION BID Rx Instructions: AT NOON nicotine 21 mg/24 hr patch 24 hour 1 patch topical Q24H tizanidine 4 mg tablet 4 mg PO QPM PRN (Reason: muscle spasticity) benzonatate 200 mg capsule 200 mg PO BID PRN (Reason: cough ) Rx Instructions: 10 DAY SUPPLY Discontinued codeine-guaifenesin 10-100 mg/5 mL liquid 10 ml PO Q6H PRN (Reason: cough ) Rx Instructions: 7 DAYS SUPPLY hydrocodone-acetaminophen 5-325 mg tablet 1 tab PO Q6H PRN (Reason: moderate to severe pain ) Activity: increase activity as tolerated Activity Detail: Given work note to remain off of work until cleared by PCP on 12/20/23 appointment Diet: advance to your usual diet Print Language: Yoruba Patient Instructions: Clonidine (By mouth), Hydroxyzine (By mouth), Levofloxacin (By mouth), Opioid Withdrawal (DC), Pneumonia (DC), Opioid Use Disorder (DC) Forms: Portal Instructions Follow Up Appointments: December 19 @ 1pm with Mariangel Person, [facility] [phone]
[2023-12-15] MEDS: LISINOPRIL 20 MG TABLET PO (09:51)
[2023-12-15] MEDS: ENOXAPARIN SODIUM 40 MG/0.4 ML SYRINGE SUBQ (09:51)
[2023-12-15] MEDS: HYDROCHLOROTHIAZIDE 25 MG TABLET PO (09:52)
[2023-12-15] MEDS: CLONIDINE HCL 0.1 MG TABLET 0.100000000000000006 MG PO (09:52)
--- NOTE | 2023-12-15 10:23 | CM.NOTE ---
Rounds made with Dr. Salazar, pt will discharge to home today. Pt continues to deny need for any outpatient counseling for withdraw (addiction). No other discharge needs identified.
--- NOTE | 2023-12-18 15:59 | CM.DCFOLLOWU ---
Person spoke with: Vishal How are you feeling? So much better- better than I have felt in months How is your pain? No pain Did you understand your discharge instructions? Yes Do you have any questions about your discharge instructions? No Were you given any prescriptions at discharge? Yes Were you able to get your prescriptions filled? Yes Do you understand how to take your medications as ordered? Yes Do you have any questions about your follow up appointment and do you plan to keep your follow up appointment? No and I plan on going to appt Is there anything else that you would like to discuss? No Questions/Comments/Concerns/Other:
== END 2023-12-15 10:47 | disposition home or self-care (01) | DRG 194 ==
LOC: ER 22:15 → MS 22:45
PROVIDERS: Emergency Medicine Emergency Medical Services; Nurse Practitioner Acute Care; Admitting Provider Family Medicine; Emergency Provider Emergency Medicine; PCP Internal Medicine; Visit Provider Family Medicine
DX: J18.9 Pneumonia, unspecified organism (principal); F11.23 Opioid dependence with withdrawal; J44.0 Chronic obstructive pulmonary disease with (acute) lower respiratory infection; Z79.899 Other long term (current) drug therapy; E86.0 Dehydration; F17.210 Nicotine dependence, cigarettes, uncomplicated; I10 Essential (primary) hypertension; M75.80 Other shoulder lesions, unspecified shoulder
CPT/HCPCS: 0202U; 36415; 71046; 71275; 80053; 80307; 80329; 82948; 83605; 84145; 84484; 85007; 85025; 85027; 87040; 87070; 93005; 94640; 94667; 94668; 96365; 96366; 96372; 96375; 99285; 99407; Q9967

== ENCOUNTER 2025-08-04 10:12 | Emergency (ER) | payer BC, SELFPAY ==
[2025-08-04] VITALS (39 sets, daily range): BP systolic 142–181; BP diastolic 95–112; PULSE 62–83; TEMP 36.6; O2SAT 79–99; BMI 32.7
--- NOTE | 2025-08-04 10:21 | ECG_ITS ---
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 Measurements Intervals [place] Rate: 74 P: 26 DC: 150 QRS: -33 QRSD: 102 T: 35 QT: 390 QTc: 418 Interpretive Statements 1100 Sinus rhythm 7200 Abnormal left axis deviation 9130 borderline ECG Compared to ECG 12/13/2023 18:09:23 Left-axis deviation now present Sinus tachycardia no longer present Electronically Signed On 08-04-2025 19:01:06 EST by MELY ZAVALA M.D.
--- NOTE | 2025-08-04 10:21 | XR_ITS ---
The [address] [address] Patient Name: ELIAZAR FENG MRN: [id number] date: 1970 Sex: M Assigned Patient Location: ED.MAIN Current Patient Location: ED.MAIN Accession/Order Number: [id number] Exam Date: 08/04/2025 10:58 Report Date: 08/04/2025 11:16 At the request of: BRANDYN NGUYỄN MD Procedure: XR chest 1V PORTABLE AP ERECT CHEST 1100 hours CLINICAL HISTORY: Shortness of breath and hypertension. History of tobacco use. COMPARISON: 12/13/2023 CT and chest x-ray The heart is top normal in size. The aorta is ectatic. Granulomatous changes are noted on the right. There is no vascular congestion. No consolidation is seen. There is no effusion or pneumothorax. The osseous structures are intact. XR/XR chest 1V IMPRESSION: NO ACUTE FINDINGS Impression dictated by: Mariangel Phillip M.D. 08/04/2025 11:16 AM Dictation Location: [place] [address] Electronically authenticated by: [id number] Y Date: 08/04/2025 11:16
--- NOTE | 2025-08-04 10:57 | ED.GENADUL1 ---
HPI HPI - General Adult General Chief complaint: Recheck/Abnormal Lab/Rx Stated complaint: HIGH BLOOD PRESSURE Time Seen by Provider: 08/04/25 10:20 Source: patient Mode of arrival: walk-in Limitations: no limitations History of Present Illness HPI narrative: The patient is a 55-year-old male presenting to the ER with a concern of shortness of breath associate with chest pressure and extreme sweating, that comes only when the patient is walking and on exertion. Patient admitted that he have a history of high blood pressure and he has not been taking his medication he was evaluated by his primary care doctor office almost 3 days ago when he was started on clonidine because blood pressure was above 200 systolic Patient smoked at least a pack of cigarette daily and he have a family history of his father dying of a coronary artery disease although not known at what age because he is adopted The patient denies any symptoms at the moment he have a cough that is chronic and not increase significantly more than his baseline he also denies any nausea vomiting and he mentioned that his shortness of breath does not get better with his inhaler and it usually get better whenever he rests and stop walking The patient apparently is having those symptoms even on mild exertion including the fact that he had no symptoms walking from the car to the ER door and he have to stop to take a breath every time he had a few steps even at home Related Data Home Medications ?Medication ?Instructions ?Recorded ?Confirmed budesonide 160 mcg-glycopyr 9 2 inh inhalation BID 12/13/23 08/04/25 mcg-formot 4.8 mcg/actuation HFA inhaler (Breztri Aerosphere) nicotine 21 mg/24 hr daily 1 patch topical Q24H 12/13/23 08/04/25 transdermal patch Held on 08/04/25. Instructions: refusing tizanidine 4 mg tablet 4 mg PO QPM PRN muscle spasticity 12/13/23 08/04/25 albuterol 90 mcg-budesonide 80 2 inh inhalation QID 08/04/25 08/04/25 mcg/actuation HFA aerosol inhaler (Airsupra) clonidine HCl 0.1 mg tablet 0.2 mg PO BID 08/04/25 08/04/25 Allergies Allergy/AdvReac Type Severity Reaction Status Date / Time No Known Drug Allergies Allergy Verified 12/13/23 17:53 Opioid HPI Opioid Management Most Recent Opioid Data: Last Pain Scale 6 12/14/23, 23:03 Last ORT Total Score 0 12/13/23, 22:47 Last ORT Risk Category Low Risk 12/13/23, 22:47 Last COWS Score 1 12/15/23, 08:00 Ur Phencyclidine Scrn, (NEGATIVE) Negative 12/13/23, 22:45 Review of Systems ROS Status of ROS 10 or more systems reviewed and unremarkable except as noted in history and below PFSH [facility] Medical History (Updated 08/04/25 @ 12:30 by Virginia Lucas MD) COPD (chronic obstructive pulmonary disease) with chronic bronchitis ?J44.89 - Other specified chronic obstructive pulmonary disease (ICD-10) AVM (arteriovenous malformation) brain ?Q28.2 - Arteriovenous malformation of cerebral vessels (ICD-10) AC (acromioclavicular) joint bone spurs ?M75.80 - Other shoulder lesions, unspecified shoulder (ICD-10) Hypertension ?I10 - Essential (primary) hypertension (ICD-10) Surgical History H/O shoulder surgery ?Z98.890 - Other specified postprocedural states (ICD-10) History of hernia surgery ?Z98.890 - Other specified postprocedural states (ICD-10) ?Z87.19 - Personal history of other diseases of the digestive system (ICD-10) Family History Other Family history not known due to adoption Social History Within the past year, how often did you have a drink containing alcohol: monthly or less Smoking status: Current every day smoker Non-prescribed substance use: denies use Previous occupational history: maintance Known occupational exposures/hazards: Yes Highest level of school completed/degree received: high school graduate Are you now , , , , never or living with a partner: In a typical week, how many times do you talk on the telephone with family, friends, or neighbors: never How often do you get together with friends or relatives: never How often do you attend congregation or faith services: never Do you belong to any clubs or organizations such as congregation groups unions, fraternal or athletic groups, or school groups: yes Total score: 2 Score interpretation: A score of greater than or equal to 2 indicates the lowest level of social isolation. Little interest or pleasure in doing things: not at all Feeling down, depressed, or hopeless: not at all Feel stressed/tense/nervous/anxious/difficulty sleeping: not at all Gender Identity: male Exam Narrative Exam Narrative: Nurses notes and vital signs reviewed and patient is not hypoxic. General: Well-appearing and in no apparent distress. Skin: Warm, dry, no pallor noted. No rash. Head: Normocephalic, atraumatic. Neck: Supple, non-tender. Cardiovascular: Regular Rate and Rhythm without murmur, gallop or rub. Respiratory: No accessory muscle use or respiratory distress. Lungs are clear to auscultation, no wheezing, rales or rhonchi Chest Wall: no tenderness Back: No midline thoracic or lumbar vertebral tenderness. No CVA tenderness Musculoskeletal: normal ROM, no calf or popliteal tenderness, no lower extremity edema/swelling GI: Abdomen is soft, non-distended. Normal bowel sounds. No masses appreciated. No tenderness to palpation. No rebound, guarding, or rigidity noted. Neurological: A&O x4. No cranial nerve dysfunction observed. No truncal ataxia. Moves all extremities. Sensation intact. Psychiatric: Cooperative and interactive. Normal mood and affect. Constitutional Vital Signs, click to edit/add: Last Vital Signs Temp 97.9 F 08/04/25 10:16 Pulse 75 08/04/25 11:50 Resp 20 08/04/25 11:50 BP 142/103 H 08/04/25 11:31 Pulse Ox 97 08/04/25 11:50 O2 Del Method Room Air 08/04/25 10:16 Course Vital Signs Vital signs: Vital Signs Temperature 97.9 F 08/04/25 10:16 Pulse Rate 83 08/04/25 10:16 Respiratory Rate 20 08/04/25 10:16 Blood Pressure 181/111 H 08/04/25 10:16 Pulse Oximetry 97 08/04/25 10:16 Oxygen Delivery Method Room Air 08/04/25 10:16 Temperature 97.9 F 08/04/25 10:16 Pulse Rate 75 08/04/25 11:50 Respiratory Rate 20 08/04/25 11:50 Blood Pressure 142/103 H 08/04/25 11:31 Pulse Oximetry 97 08/04/25 11:50 Oxygen Delivery Method Room Air 08/04/25 10:16 Medical Decision Making [facility] Narrative Medical decision making narrative: The patient presentation is concerning for possibly a coronary artery disease related symptoms especially with his presentation of exertion swelling and shortness of breath and chest pressure The patient EKG in the ER was showing sinus rhythm with a heart rate of [address] elevation or depression Patient does not have any significant symptoms at the moment The patient chest x-ray showed no acute pathology CBC and chemistry within normal except for the elevation of the troponin that is mild at 80 The only past medical history recorded by the patient was the fact that he had 2 years ago they have been diagnosed with AV malformation and apparently he was told that it is in his cerebellum but he did not need any surgery then and that according to the patient words The patient case discussed with from the cardiology service in [facility] and she requested the patient to be transferred to [facility] for evaluation by cardiology The patient second troponin was not trending up but it was still elevated The patient case also discussed with Dr. Hinkle in [facility] service and she accepted the patient Patient is agreeable to transfer Lab Data Labs: Lab Results 08/04/25 08/04/25 Range/Units 10:50 12:39 WBC 10.3 (4.0-11.0) 10^3/uL RBC 5.09 (4.70-6.10) 10^6/uL Hgb 15.8 (14.0-18.0) g/dL Hct 46.1 (42.0-54.0) % MCV 90.6 (80.0-94.0) fL MCH 31.0 (25.9-34.0) pg MCHC 34.3 (29.9-35.2) g/dL RDW 14.2 (11.0-15.0) % Plt Count 327 (150-450) 10^3/uL MPV 9.7 (9.5-13.5) fL Neut % (Auto) 78.0 H (43.0-75.0) % Lymph % (Auto) 11.1 L (20.5-60.0) % [place] % (Auto) 6.2 (1.7-12.0) % Eos % (Auto) 3.9 (0.9-7.0) % Baso % (Auto) 0.5 (0.2-2.0) % Neut # (Auto) 8.0 H (1.4-6.5) 10^3/uL Lymph # (Auto) 1.1 L (1.2-3.8) 10^3/uL [place] # (Auto) 0.6 (0.3-0.8) 10^3/uL Eos # (Auto) 0.4 (0.0-0.7) 10^3/uL Baso # (Auto) 0.1 (0.0-0.1) 10^3/uL Abs Immat Gran (auto) 0.03 (0.00-0.03) 10^3/uL Imm/Tot Granulo (auto) 0.3 (0.0-0.5) % Sodium 141 (136-145) mmol/L Potassium 4.2 (3.5-5.1) mmol/L Chloride 106 (98-107) mmol/L Carbon Dioxide 29.5 (21.0-32.0) mmol/L Anion Gap 9.7 BUN 15.0 (7.0-18.0) mg/dL Creatinine 1.03 (0.70-1.30) mg/dL Est GFR ( Amer) >60 (>=60 mL/min/1.73m^2) Est GFR (Non-Af Amer) >60 (>=60 mL/min/1.73m^2) BUN/Creatinine Ratio 14.6 Glucose 88 (74-106) mg/dL Calcium 8.5 (8.5-10.1) mg/dL Total Bilirubin 0.5 (0.2-1.0) mg/dL AST 15 (15-37) U/L ALT 29 (16-63) U/L Alkaline Phosphatase 82 (46-116) U/L Troponin I High Sens 80.2 H* 76.7 H* (4.0-76.1) pg/mL Total Protein 6.3 L (6.4-8.2) g/dL Albumin 3.3 L (3.4-5.0) g/dL Globulin 3.0 g/dL Albumin/Globulin Ratio 1.1 Discharge Plan Discharge Chief Complaint: Recheck/Abnormal Lab/Rx Clinical Impression: Angina pectoris, unstable Patient Disposition: [facility] Time of Disposition Decision: 13:44 Discharge location: [facility]/ Dr Hinkle
[2025-08-04 11:04] LABS: Hematocrit 46.1 % (42.0-54.0); Hemoglobin 15.8 g/dL (14.0-18.0); Immature Granulocytes Abs Auto 0.03 10^3/uL (0.00-0.03); Immature Granulocytes Pct Auto 0.3 % (0.0-0.5); Lymphocytes Absolute Auto 1.1 10^3/uL (1.2-3.8); Mean Corpuscular HGB Conc 34.3 g/dL (29.9-35.2); Mean Corpuscular Hemoglobin 31.0 pg (25.9-34.0); Mean Corpuscular Volume 90.6 fL (80.0-94.0); Platelet Count 327 10^3/uL (150-450); Red Blood Count 5.09 10^6/uL (4.70-6.10); White Blood Count 10.3 10^3/uL (4.0-11.0)
[2025-08-04 11:23] LABS: Alanine Aminotransferase 29 U/L (16-63); Albumin Globulin Ratio 1.1; Albumin Level 3.3 g/dL (3.4-5.0); Alkaline Phosphatase 82 U/L (46-116); Anion Gap 9.7; Aspartate Amino Transferase 15 U/L (15-37); Blood Urea Nitrogen 15.0 mg/dL (7.0-18.0); Calcium 8.5 mg/dL (8.5-10.1); Carbon Dioxide 29.5 mmol/L (21.0-32.0); Chloride 106 mmol/L (98-107); Estimated GFR (African America >60 (>=60 mL/min/1.73m^2); Estimated GFR (Non-African Ame >60 (>=60 mL/min/1.73m^2); Globulin 3.0 g/dL; Glucose 88 mg/dL (74-106); Potassium 4.2 mmol/L (3.5-5.1); Sodium 141 mmol/L (136-145); Total Protein 6.3 g/dL (6.4-8.2)
[2025-08-04] MEDS: ASPIRIN 81 MG TAB.CHEW 324 MG PO (11:43)
== END 2025-08-04 15:38 | disposition short-term general hospital (02) ==
PROVIDERS: Emergency Provider Emergency Medicine; PCP Physician Assistant
DX: I20.0 Unstable angina (principal); F17.210 Nicotine dependence, cigarettes, uncomplicated
CPT/HCPCS: 36415; 71045; 80053; 84484; 85025; 93005; 99284; 99285